=== PATIENT | male | born 1990 | race Hispanic/Latino ===

== ENCOUNTER → 2021-07-11 | Outpatient (REF) ==
--- NOTE | 2021-07-11 11:18 | REP ---
INDICATION: PAIN COMPARISON: None. TECHNIQUE: AP, lateral, coned-down views of the lumbar spine. FINDINGS: Three views of the lumbosacral spine demonstrate satisfactory alignment and lordosis without acute fracture / compression injury or subluxation. No significant degenerative or obvious congenital abnormalities noted. IMPRESSION: 1. Normal age-appropriate lumbosacral spine radiographs. If the patient remains symptomatic consider MRI for further investigation. <Electronically signed by Vaughn Mathew > 07/11/21 [id number]
--- NOTE | 2021-07-11 11:19 | REP ---
INDICATION: PAIN COMPARISON: None. TECHNIQUE: AP and frog-lateral views of the right and left hip FINDINGS: Bilateral hip joints are symmetric and essentially age-appropriate. No significant osteoarthritic or inflammatory arthritic changes are appreciated. IMPRESSION: Symmetric age-appropriate bilateral hip joints. <Electronically signed by Vaughn Mathew > 07/11/21 [id number]
== END ==
LOC: M PLAIMG 10:19
PROVIDERS: ATTEND Internal Medicine
DX: Z00.00 Encounter for general adult medical examination without abnormal findings (principal)